=== PATIENT | female | born 1995 | race Two or more races ===

== ENCOUNTER 2017-10-25 19:36 | Emergency (ER) | payer OTHER ==
[2017-10-25] MEDS ORDERED: LORazepam 2 MG/ML VIAL IVP STA ×2 (19:55→23:25)
[2017-10-25] MEDS ORDERED: ALBUTEROL NEB 2.5 MG/3 ML INH STA ×2 (19:55→22:30)
[2017-10-25] MEDS ORDERED: MORPHINE 10 MG/ML VIAL IVP STA (19:55)
[2017-10-25] MEDS ORDERED: SODIUM CHLORIDE 0.9% 1,000 ML IV ONE ×2 (19:55→23:26)
[2017-10-25] MEDS ORDERED: diphenhydrAMINE INJ 50 MG/ML VIAL IVP STA ×2 (19:56→22:31)
[2017-10-25] MEDS ORDERED: DEXAMETHASONE 10 MG/ML VIAL IVP STA (19:57)
--- NOTE | 2017-10-25 19:57 | ED Physician Documentation ---
PD HPI DYSPNEA - Stated complaint Stated Complaint: CP/SOA - Chief complaint Chief Complaint: Cardiac - History obtained from History obtained from: Patient - History of Present Illness Timing - onset: Today Timing - onset during: Rest Timing - details: Gradual onset, Still present (had felt okay earlier today. No noted environmental exposures, unusual odors, chemicals, nor foods. Has some congestion and mild cough. Had then abrupt onset of anterior chest pain and dyspnea. Having barking/harsh cough repetitively. She started to feel that she could not get a breath.) Inciting event(s): URI (some cough and mild congestion). No: Out of meds, Allergic rxn/anaphylaxis, FB / choking, Emotional event Improved by: Sitting up Worsened by: Coughing Associated symptoms: Cough, Wheezing, Chest pain / discomfort. No: Fever, Hemoptysis, Bilateral edema Similar symptoms before: Has not had sx before Recently seen: Not recently seen Review of Systems Constitutional: reports: Myalgias. denies: Fever, Chills Nose: reports: Congestion. denies: Rhinorrhea / runny nose Throat: denies: Sore throat Cardiac: reports: Chest pain / pressure (anterior). denies: Palpitations Respiratory: reports: Dyspnea, Cough. denies: Hemoptysis GI: denies: Abdominal Pain, Nausea, Vomiting, Diarrhea : denies: Dysuria, Frequency Skin: denies: Rash, Lesions Musculoskeletal: denies: Neck pain, Back pain Neurologic: reports: Generalized weakness. denies: Focal weakness, Numbness, Near syncope PD PAST MEDICAL HISTORY - Past Medical History Cardiovascular: None Respiratory: None Neuro: None Endocrine/Autoimmune: None - Present Medications Home Medications: Ambulatory Orders Medication Instructions Recorded Confirmed Citalopram [CeleXA] 20 mg PO DAILY 04/25/15 08/20/15 HYDROcod/ACETAM 5/325 [Metter 5/325] 1 - 2 ea PO Q6H PRN #10 tablet 06/14/16 Cephalexin [Keflex] 500 mg PO QID #24 capsule 10/26/17 Dexamethasone [Decadron] 4 mg PO DAILY #5 tablet 10/26/17 HYDROcod/ACETAM 5/325 [Metter 5/325] 1 tab PO Q6H PRN #15 tablet 10/26/17 Lorazepam [Ativan] 1 mg PO Q8H PRN #12 tablet 10/26/17 - Allergies Allergies/Adverse Reactions: Allergies Allergy/AdvReac Type Severity Reaction Status Date / Time No Known Drug Allergies Allergy Verified 06/06/15 14:55 PD ED PE NORMAL - Vitals Vital signs reviewed: Yes (minimal fever; tachycardic; has good sats. ) - General General: Alert and oriented X 3, Well developed/nourished - HEENT HEENT: Ears normal, Pharynx benign, Other (intermittent barky cough c/w croup sound. Fast breathing and seems anxious. Slightly hoarse voice. No accessory muscle use. ) - Neck Neck: Supple, no meningeal sign, No adenopathy, No JVD - Cardiac Cardiac: RRR, No murmur - Respiratory Respiratory: No: Clear bilaterally (some wheezes noted centrally; barky cough and some hoarseness. ) - Abdomen Abdomen: Normal bowel sounds, Soft, Non distended, No organomegaly, Other ( tender upper abd and she says feels bloated. ) - Back Back: No CVA TTP - Derm Derm: Normal color, Warm and dry - Extremities Extremities: No deformity, No tenderness to palpate, No edema, No calf tenderness / cord - Neuro Neuro: Alert and oriented X 3, No motor deficit, Normal speech Results - Vitals Vitals: Oxygen O2 Source Room air - Labs Labs: Laboratory Tests 10/25/17 10/25/17 10/25/17 19:49 19:49 20:50 WBC 15.7 H RBC 4.90 Hgb 12.7 Hct 39.1 MCV 79.7 L MCH 25.8 L MCHC 32.4 RDW 15.9 H Plt Count 303 MPV 7.9 Neut # 12.2 H Lymph # 2.3 [place] # 0.9 Eos # 0.3 Baso # 0.0 Absolute Nucleated RBC 0.00 Nucleated RBC % 0.0 Sodium 137 Potassium 4.0 Chloride 105 Carbon Dioxide 24 Anion Gap 8.0 BUN 10 Creatinine 0.6 Estimated GFR (MDRD) 129 Glucose 96 Calcium 9.3 Total Bilirubin < 0.2 L AST 33 ALT 42 Alkaline Phosphatase 49 Total Protein 8.2 Albumin 4.8 Globulin 3.4 Albumin/Globulin Ratio 1.4 Lipase 27 Urine Color YELLOW Urine Clarity HAZY Urine pH 6.0 Ur Specific [place] 1.010 Urine Protein NEGATIVE Urine Glucose (UA) NEGATIVE Urine Ketones NEGATIVE Urine Occult Blood LARGE H Urine Nitrite NEGATIVE Urine Bilirubin NEGATIVE Urine Urobilinogen 0.2 (NORMAL) Ur Leukocyte Esterase NEGATIVE Urine RBC 11-25 H Urine WBC 0-3 Ur Squamous Epith Cells MOD Squamous H Urine Bacteria None Seen Ur Microscopic Review INDICATED Urine Culture Comments NOT INDICATED Urine HCG, Qual Influenza A (Rapid) Influenza B (Rapid) Influenza Types A,B Ag 10/25/17 10/25/17 20:50 23:07 WBC RBC Hgb Hct MCV MCH MCHC RDW Plt Count MPV Neut # Lymph # [place] # Eos # Baso # Absolute Nucleated RBC Nucleated RBC % Sodium Potassium Chloride Carbon Dioxide Anion Gap BUN Creatinine Estimated GFR (MDRD) Glucose Calcium Total Bilirubin AST ALT Alkaline Phosphatase Total Protein Albumin Globulin Albumin/Globulin Ratio Lipase Urine Color Urine Clarity Urine pH Ur Specific [place] 1.010 Urine Protein Urine Glucose (UA) Urine Ketones Urine Occult Blood Urine Nitrite Urine Bilirubin Urine Urobilinogen Ur Leukocyte Esterase Urine RBC Urine WBC Ur Squamous Epith Cells Urine Bacteria Ur Microscopic Review Urine Culture Comments Urine HCG, Qual NEGATIVE Influenza A (Rapid) Negative Influenza B (Rapid) Negative Influenza Types A,B Ag - - Rads (name of study) chest Radiology: Prelim report reviewed (no infiltrates) neck CT Radiology: Prelim report reviewed, EMP read contemporaneously (no epiglottitis.) PD MEDICAL DECISION MAKING - ED course Complexity details: re-evaluated patient (Given IV meds for pain and anxiety with improvements. Neb treatment for wheezing/croup sounds with Albuterol. Can consider racemic epi. Given steroids IV. Seeming improved for awhile, and then started with some feeling of tightness in throat and chest. Given Albuterol again without improvement. Gave Ativan again with better improvement. Lungs without wheezing. Watched few hours in ED without worsening again. Had some feeling of tightness in throat and improved with some ativan again. She is resting comfortably at time of discharge. ), considered differential ( considerable distress/anxiety, but good sats and no accessory muscle use. Consider croup, viral URI, environmental allergy with edema/wheezing. She however does not have oral lesions and no obvious uvular edema. ), d/w patient Departure - Departure Disposition: 01 Home, Self Care Clinical Impression: Upper respiratory infection Qualifiers: URI type: croup Qualified Code(s): J05.0 - Acute obstructive laryngitis [croup] Condition: Stable Record reviewed to determine appropriate education?: Yes Instructions: ED Croup Viral Ch Follow-Up: LOBO CORBIN PA-C [Primary Care Provider] - Prescriptions: Cephalexin [Keflex] 500 mg PO QID #24 capsule Dexamethasone [Decadron] 4 mg PO DAILY #5 tablet HYDROcod/ACETAM 5/325 [Metter 5/325] 1 tab PO Q6H PRN #15 tablet PRN Reason: Pain Lorazepam [Ativan] 1 mg PO Q8H PRN #12 tablet PRN Reason: Anxiety Comments: Mostly likely to be viral infection (croup-like), with some inflammation and spasms of the airway. No signs of closing/edema of the airway nor epiglottis on CT scan. Take the Decadron steroid daily for next 4-5 days to reduce inflammation. Add Lorazepam for spasms and hydrocodone for pains. In case of bacterial infection, will also give Keflex antibiotic. Recheck if worse again or if getting sicker, or if not improved well over the next 1-2 days. Discharge Date/Time: 10/26/17 01:32
[2017-10-25 20:06] LABS: BASOPHILS % (AUTO) 0.3 %; EOSINOPHILS # (AUTO) 0.3 10^3/uL (0.0-0.7); EOSINOPHILS % (AUTO) 1.8 %; HGB - HEMOGLOBIN 12.7 g/dL (12.0-16.0); LYMPHOCYTES # (AUTO) 2.3 10^3/uL (1.5-3.5); LYMPHOCYTES % (AUTO) 14.9 %; MEAN CORPUSCULAR HEMOGLOBIN 25.8 pg (27.0-31.0); MEAN CORPUSCULAR HGB CONC 32.4 g/dL (32.0-36.0); MEAN CORPUSCULAR VOLUME 79.7 fL (81.0-99.0); MEAN PLATELET VOLUME 7.9 fL (7.9-10.8); MONOCYTES # (AUTO) 0.9 10^3/uL (0.0-1.0); MONOCYTES % (AUTO) 5.5 %; NEUTROPHILS # (AUTO) 12.2 10^3/uL (1.5-6.6); NEUTROPHILS % (AUTO) 77.5 %; PLT - PLATELET COUNT 303 10^3/uL (130-450); RED CELL DISTRIBUTION WIDTH 15.9 % (12.0-15.0); WHITE BLOOD COUNT 15.7 x10^3/uL (4.8-10.8)
[2017-10-25 20:16] LABS: ALBUMIN 4.8 g/dL (3.2-5.5); ALBUMIN/GLOBULIN RATIO 1.4 (1.0-2.2); ALKALINE PHOSPHATASE 49 IU/L (42-121); ALT ALANINE AMINOTRANSFERASE 42 IU/L (10-60); AST ASPARTATE AMINOTRANSFERASE 33 IU/L (10-42); BILIRUBIN,TOTAL < 0.2 mg/dL (0.2-1.0); BUN - BLOOD UREA NITROGEN 10 mg/dL (6-20); CALCIUM 9.3 mg/dL (8.5-10.3); CARBON DIOXIDE - CO2 24 mmol/L (21-32); CHLORIDE 105 mmol/L (101-111); CREATININE 0.6 mg/dL (0.4-1.0); GFR - MDRD 129 (>89); GLUCOSE 96 mg/dL (70-100); LIPASE 27 U/L (22-51); SODIUM 137 mmol/L (135-145); TOTAL PROTEIN 8.2 g/dL (6.7-8.2)
--- NOTE | 2017-10-25 20:28 | XRAY Preliminary Report ---
Exam: XR CHEST 1 VIEW X-RAY IMPRESSION: Normal single view chest. [facility] SITE ID: [id number]
--- NOTE | 2017-10-25 20:33 | XRAY Report ---
EXAM: CHEST RADIOGRAPHY EXAM DATE: 10/25/2017 08:04 PM. CLINICAL HISTORY: Dyspnea and chest pain. COMPARISON: None. TECHNIQUE: 1 view. FINDINGS: Lungs/Pleura: No focal opacities evident. No pleural effusion. No pneumothorax. Mediastinum: Within exam limitations, the cardiomediastinal contour is normal. Other: Old right clavicle fracture. IMPRESSION: Normal single view chest. [facility] Referring Provider Line: [phone] SITE ID: [id number]
[2017-10-25 21:03] LABS: BILIRUBIN,URINE NEGATIVE (NEGATIVE); GLUCOSE, URINE (UA) NEGATIVE (NEGATIVE); KETONES,URINE (UA) NEGATIVE (NEGATIVE); LEUKOCYTE ESTERASE, URINE NEGATIVE (NEGATIVE); NITRITE,URINE NEGATIVE (NEGATIVE); OCCULT BLOOD,URINE LARGE (NEGATIVE); PROTEIN,URINE NEGATIVE (NEGATIVE); UROBILINOGEN,URINE 0.2 (NORMAL) E.U./dL (NORMAL)
[2017-10-25 21:06] LABS: CLARITY,URINE HAZY (CLEAR)
[2017-10-25 21:07] LABS: HCG UR QUAL NEGATIVE
[2017-10-25 21:15] LABS: BACTERIA,URINE None Seen /HPF (None Seen); SQUAMOUS EPITHELIAL CELL,UR MOD Squamous (<= Few)
[2017-10-25] MEDS ORDERED: cephALEXin 250 MG CAPSULE PO STA (22:55)
[2017-10-25] MEDS ORDERED: HYDROmorphone 1 MG/ML SYRINGE IVP STA (22:58)
[2017-10-25] MEDS ORDERED: IOPAMIDOL-300 100 ML VIAL ONE (23:52)
[2017-10-26] MEDS ORDERED: IOPAMIDOL-300 100 ML VIAL IVP ONE (00:11)
[2017-10-26] MEDS ORDERED: HYDROcod/ACET 5/325 Prepack 6 PO STA (00:59)
[2017-10-26] MEDS ORDERED: LORazepam 0.5 MG TABLET PO STA (00:59)
[2017-10-26 01:09] VITALS: BP 132/63
--- NOTE | 2017-10-26 01:30 | CT Preliminary Report ---
Exam: CT NECK SOFT TISSUE W/ IMPRESSION: Normal CT of the neck. [facility] SITE ID: [id number]
--- NOTE | 2017-10-26 01:51 | CT Report ---
EXAM: CT SOFT TISSUE NECK WITH CONTRAST EXAM DATE: 10/26/2017 12:14 AM. HISTORY: Sore throat, dyspnea, fever. COMPARISONS: None. TECHNIQUE: Routine soft tissue neck CT protocol. Reconstructions: Coronal and sagittal. IV contrast: 80 mL Isovue 300. In accordance with CT protocol optimization, one or more of the following dose reduction techniques w ere utilized for this exam: automated exposure control, adjustment of mA and/or KV based on patient s ize, or use of iterative reconstructive technique. FINDINGS: Visualized Intracranial Contents: Unremarkable. Orbits: Symmetric and unremarkable. Sinuses: Visualized paranasal sinuses and mastoid air cells are clear. Pharynx : Pharyngeal mucosa is unremarkable. The infratemporal fossa, parapharyngeal spaces, and retr opharyngeal space are unremarkable. The base of the tongue is symmetric and unremarkable. The airway is patent. Larynx: Larynx and supraglottic airway are patent without mass lesion. Vocal cords are symmetric. The visualized trachea is unremarkable. Oral cavity and tongue: The visualized oral cavity is unremarkable. The floor of the mouth is symmetr ic. Parotid and Submandibular Glands: Symmetric and unremarkable. Lymph Nodes: No enlarged lymph nodes are identified in the cervical, supraclavicular, and visualized superior mediastinal regions. Soft tissues: Soft tissues are unremarkable. No mass lesion or abnormal enhancement. Vascular Structures: Patent. Thyroid Gland: Normal. Lung: The visualized lung apices are clear. Bones: Normal. IMPRESSION: Normal CT of the neck. [facility] Referring Provider Line: [phone] SITE ID: [id number]
== END 2017-10-26 01:32 | disposition home or self-care (01) ==
LOC: ED 19:36
DX: J06.9 Acute upper respiratory infection, unspecified (principal); R00.0 Tachycardia, unspecified
CPT/HCPCS: 36415; 70491; 71045; 80053; 81001; 81025; 83690; 85025; 87275; 87276; 93005; 94640; 96374; 96375; 96376; 99284; A9270; J1170; J2060; J7613; Q9967; 81003; 87086